=== PATIENT | female | born 2000 | race African-American/Black ===

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

== ENCOUNTER 2018-01-03 12:23 | Emergency (ER) | payer OTHER ==
[~2018-01-03] VITALS: Ht 162.6 cm; Wt 57.5 kg
[~2018-01-03 12:23] MED LIST changes: -DOCU-94 PO; -FERR28TA2 PO; -FOLI1TAB8 PO; -KETO10TA PO; -METH2.5T PO; -PROC1TAB5 PO
[2018-01-03 12:33] VITALS: TEMP 37.5; Ht 162.6 cm; Wt 57.5 kg
[2018-01-03] MEDS ORDERED: METH2.5T PO (13:25)
[2018-01-03] MEDS ORDERED: FERR28TA2 PO (13:25)
[2018-01-03] MEDS ORDERED: DOCU-94 PO (13:25)
[2018-01-03] MEDS ORDERED: FOLI1TAB8 PO (13:25)
[2018-01-03] MEDS ORDERED: PRED-301 PO (13:26)
[2018-01-03] MEDS ORDERED: KETOROLAC TROMETHAMINE 30 MG/ML VIAL IV STA (13:45)
[2018-01-03] MEDS ORDERED: SODIUM CHLORIDE 0.9% 1000ML 1,000 ML IV ONE (13:45)
[2018-01-03] MEDS ORDERED: ACETAMINOPHEN 500 MG TAB PO STA (13:45)
--- NOTE | 2018-01-03 13:52 | EMERGENCY ROOM VISIT NOTE ---
History First contact with patient: 13:23 Chief Complaint: FEVER Stated Complaint: MIGRAINE, FEVER, SOB, MUSCLE ACHE History of Present Illness The patient is a 17 year old female who presents to the Emergency Room with complaints of headache, fever and body aches for the last 2 days. Patient has a history of mixed connective tissue disease. She was started on methotrexate approximately 1 month ago. The patient has had body aches since starting the medications. She also complains of a sore throat and sinus pressure. She took her temperature at home. Was 101F. She has not taken any [id number] medication for her symptoms. The patient contacted her vessel captain in addition to her primary care physician who directed her to the ER for further evaluation. She is also complaining of photophobia. She feels nauseated, but has not vomited. Review of Systems 10 system review performed and negative unless noted in HPI or below Past Medical/Surgical History Medical Problems: (1) Conjunctivitis of both eyes (2) Mixed connective tissue disease (3) Pharyngitis Social History Smoking Status: Never Smoker Alcohol Use: none Drug Use: none Marital Status: single Housing Status: lives with family Occupation Status: student Current/Historical Medications Scheduled Albuterol Hfa (Ventolin Hfa), 3 PUFFS INH Q4 Docusate Sodium (Colace), 1 CAP PO BID Ferrous Sulfate (Iron), 1 TAB PO DAILY Folic Acid (Folvite), 1 MG PO DAILY Methotrexate (Methotrexate), 6 TABS PO WK Prednisone (Prednisone), 5 MG PO DAILY Prochlorperazine Maleate (Compazine), 10 MG PO Q8H Scheduled PRN Ketorolac Tromethamine (Toradol), 10 MG PO TID PRN for Pain Physical Exam Vital Signs Date Time Temp Pulse Resp B/P (MAP) Pulse Ox O2 Delivery O2 Flow Rate FiO2 01/03/18 16:55 66 18 94/50 99 Room Air 01/03/18 15:35 67 18 110/54 99 Room Air 01/03/18 12:33 37.5 99 18 112/72 97 Room Air Physical Exam VITALS: Vitals are noted on the nurse's note and reviewed by myself. Vital signs stable. GENERAL: 17-year-old female, in no acute distress, nondiaphoretic, well- developed well-nourished. SKIN: The skin was without rashes, erythema, edema, or bruising. HEAD: Normocephalic atraumatic. EARS: External auditory canals clear, tympanic membranes pearly araya without erythema or effusion bilaterally. EYES: Pupils equal round and reactive to light and accommodation. Conjunctivae without injection, sclerae without icterus. Extraocular movements intact. NOSE: Patent, turbinates without inflammation or discharge. Tenderness over the right maxillary sinus MOUTH: Mucous membranes slightly dry tonsils are not enlarged. Pharynx without erythema or exudate. Uvula midline. Airway patent. Tongue does not deviate. NECK: Supple without nuchal rigidity. No lymphadenopathy. Cervical spine is nontender. No JVD. HEART: Regular rate and rhythm without murmurs gallops or rubs. LUNGS: Clear to auscultation bilaterally without wheezes, rales or rhonchi. No accessory muscle use. ABDOMEN: Positive bowel sounds x 4.Soft, nontender, without organomegaly. No guarding or rebound tenderness. MUSCULOSKELETAL: No muscle atrophy, erythema, or edema noted. Full range of motion in all extremities. No tenderness to palpation. Normal gait. Strength 5/5 throughout. NEURO: Patient was alert and oriented to person place and time. Cerebellar function intact. Cranial nerves grossly intact normal sensation to touch. No focal neurological deficits. Medical Decision & Procedures ER Provider Diagnostic Interpretation: CXR Patient Name: LELO IQBAL Unit Number: [id number] Dictated: 01/03/181611 Transcribed: 01/03/181611 PBS Printed Date/Time: [~ rep prt dt]/[~ rep prt tm] [~ rep ct labl] - [~ rep ct ivnm] [facility] [place] [address] Dictated: 01/03/181611 Transcribed: 01/03/181611 PBS Printed Date/Time: [~ rep prt dt]/[~ rep prt tm] [~ rep ct labl] - [~ rep ct ivnm] IMPRESSION: 1. No acute cardiopulmonary disease. Electronically signed by: Dane Ugarte M.D. 01/03/2018 4:13 PM Dictated Date/Time: 01/03/2018 4:12 PM The status of this report is Signed. Draft = Not yet reviewed or approved by Radiologist. Signed = Reviewed and approved by Radiologist. <AttendingPhy></AttendingPhy> <FamilyPhy>Olvin Milan M.D.</FamilyPhy> < PrimaryPhy>Taryn Cerda M.D.</PrimaryPhy> <UnitNumber>[id number]</UnitNumber > <VisitNumber>[id number]</VisitNumber> <PatientName>LELO IQBAL</ PatientName> <DateOfBirth>2000</DateOfBirth> <Location>[facility]</Location> < ServiceDate>01/03/18</ServiceDate> <MNE>ESINDI</MNE> <OrderingPhy>Adelaide Martin PA-C</OrderingPhy> <OrderingPhyMNE>f rep ord dr roman</OrderingPhyMNE> < DictatingPhyMNE>f rep dict dr roman</DictatingPhyMNE> <CCListMNE>f rep ct mne</ CCListMNE> <AdmittingPhyMNE>f pt admit dr roman</AdmittingPhyMNE> <AttendingPhyMNE >f pt attend dr roman</AttendingPhyMNE> <ConsultingPhyMNE>f pt consult dr roman</ConsultingPhyMNE> <FamilyPhyMNE>f pt fam dr roman</FamilyPhyMNE> <OtherPhyMNE>f pt other dr roman</OtherPhyMNE> < PrimaryPhyMNE>f pt prim care dr roman</PrimaryPhyMNE> <ReferringPhyMNE>f pt referring dr roman</ReferringPhyMNE> CT head w/o contrast IMPRESSION: 1. No acute intracranial abnormality. Electronically signed by: Dane Ugarte M.D. 01/03/2018 3:29 PM Dictated Date/Time: 01/03/2018 3:27 PM The status of this report is Signed. Draft = Not yet reviewed or approved by Radiologist. Signed = Reviewed and approved by Radiologist. <AttendingPhy></AttendingPhy> <FamilyPhy>Olvin Milan M.D.</FamilyPhy> < PrimaryPhy>Taryn Cerda M.D.</PrimaryPhy> <UnitNumber>[id number]</UnitNumber > <VisitNumber>[id number]</VisitNumber> <PatientName>LELO IQBAL</ PatientName> <DateOfBirth>2000</DateOfBirth> <Location>[facility]</Location> < ServiceDate>01/03/18</ServiceDate> <MNE>ESINDI</MNE> <OrderingPhy>Adelaide Martin PA-C</OrderingPhy> <OrderingPhyMNE>f rep ord dr roman</OrderingPhyMNE> < DictatingPhyMNE>f rep dict dr roman</DictatingPhyMNE> <CCListMNE>f rep ct mne</ CCListMNE> <AdmittingPhyMNE>f pt admit dr roman</AdmittingPhyMNE> <AttendingPhyMNE >f pt attend dr roman</AttendingPhyMNE> <ConsultingPhyMNE>f pt consult dr roman</ConsultingPhyMNE> <FamilyPhyMNE>f pt fam dr roman</FamilyPhyMNE> <OtherPhyMNE>f pt other dr roman</OtherPhyMNE> < PrimaryPhyMNE>f pt prim care dr roman</PrimaryPhyMNE> <ReferringPhyMNE>f pt referring dr roman</ReferringPhyMNE> Laboratory Results 01/03/18 14:30 Red Blood Count 3.94, Mean Corpuscular Volume 85.5, Mean Corpuscular Hemoglobin 28.9, Mean Corpuscular Hemoglobin Concent 33.8, Mean Platelet Volume 9.0, Neutrophils (%) (Auto) 70.6, Lymphocytes (%) (Auto) 23.7, Monocytes (%) (Auto) 4.7, Eosinophils (%) (Auto) 0.4, Basophils (%) (Auto) 0.2, Neutrophils # (Auto) 3.57, Lymphocytes # (Auto) 1.20, Monocytes # (Auto) 0.24, Eosinophils # (Auto) 0.02, Basophils # (Auto) 0.01 01/03/18 14:30 Test 01/03/18 14:12 01/03/18 14:30 01/03/18 15:31 Influenza Type A Antigen Neg for Influ A (NEG) Influenza Type B Antigen Neg for Influ B (NEG) White Blood Count 5.06 K/uL (4.8-10.8) Red Blood Count 3.94 M/uL (4.2-5.4) Hemoglobin 11.4 g/dL (12.0-16.0) Hematocrit 33.7 % (37-47) Mean Corpuscular Volume 85.5 fL (80-100) Mean Corpuscular Hemoglobin 28.9 pg (25-34) Mean Corpuscular Hemoglobin Concent 33.8 g/dl (32-36) Platelet Count 320 K/uL (130-400) Mean Platelet Volume 9.0 fL (7.4-10.4) Neutrophils (%) (Auto) 70.6 % Lymphocytes (%) (Auto) 23.7 % Monocytes (%) (Auto) 4.7 % Eosinophils (%) (Auto) 0.4 % Basophils (%) (Auto) 0.2 % Neutrophils # (Auto) 3.57 K/uL (1.4-6.5) Lymphocytes # (Auto) 1.20 K/uL (1.2-3.4) Monocytes # (Auto) 0.24 K/uL (0.11-0.59) Eosinophils # (Auto) 0.02 K/uL (0-0.5) Basophils # (Auto) 0.01 K/uL (0-0.2) RDW Standard Deviation 38.6 fL (36.4-46.3) RDW Coefficient of Variation 12.5 % (11.5-14.5) Immature Granulocyte % (Auto) 0.4 % Immature Granulocyte # (Auto) 0.02 K/uL (0.00-0.02) Erythrocyte Sedimentation Rate 49 mm/hr (0-21) Anion Gap 8.0 mmol/L (3-11) Est Creatinine Clear Calc Drug Dose 113.3 ml/min Estimated GFR () 146.3 Estimated GFR (Non- 126.2 BUN/Creatinine Ratio 6.9 (10-20) Calcium Level 8.5 mg/dl (8.5-10.1) Total Bilirubin 0.4 mg/dl (0.2-1) Aspartate Amino Transf (AST/SGOT) 15 U/L (15-37) Alanine Aminotransferase (ALT/SGPT) 15 U/L (12-78) Alkaline Phosphatase 55 U/L (45-117) Total Creatine Kinase 52 U/L (26-192) Troponin I < 0.015 ng/ml (0-0.045) Total Protein 8.7 gm/dl (6.4-8.2) Albumin 3.6 gm/dl (3.4-5.0) Globulin 5.1 gm/dl (2.5-4.0) Albumin/Globulin Ratio 0.7 (0.9-2) Thyroid Stimulating Hormone (TSH) 0.510 uIu/ml (0.300-4.500) Free Thyroxine 0.99 ng/dl (0.80-1.60) Hepatitis B Surface Antigen NEG (NEG) Hepatitis C Antibody NEG (NEG) Urine Color YELLOW Urine Appearance CLEAR (CLEAR) Urine pH 7.5 (4.5-7.5) Urine Specific Art 1.010 (1.000-1.030) Urine Protein NEG (NEG) Urine Glucose (UA) NEG (NEG) Urine Ketones NEG (NEG) Urine Occult Blood NEG (NEG) Urine Nitrite NEG (NEG) Urine Bilirubin NEG (NEG) Urine Urobilinogen NEG (NEG) Urine Leukocyte Esterase TRACE (NEG) Urine WBC (Auto) 1-5 /hpf (0-5) Urine RBC (Auto) 0-4 /hpf (0-4) Urine Hyaline Casts (Auto) 0 /lpf (0-5) Urine Epithelial Cells (Auto) 20-30 /lpf (0-5) Urine Bacteria (Auto) NEG (NEG) Urine Test NEG (NEG) Medications Administered Medications (Trade) Dose Ordered Sig/Rahat Route Start Time Stop Time Status Last Admin Dose Admin Sodium Chloride 1,000 ml @ 999 mls/hr Q1H1M ONCE IV 01/03/18 13:45 01/03/18 14:45 DC 01/03/18 14:37 999 MLS/HR Acetaminophen (Tylenol Tab) 1,000 mg NOW STAT PO 01/03/18 13:45 01/03/18 13:50 DC 01/03/18 14:36 1,000 MG Ketorolac Tromethamine (Toradol Inj) 30 mg NOW STAT IV 01/03/18 13:45 01/03/18 13:50 DC 01/03/18 14:37 30 MG Diphenhydramine HCl (Benadryl Inj) 25 mg NOW STAT IV 01/03/18 16:06 01/03/18 16:07 DC 01/03/18 16:22 25 MG Prochlorperazine Edisylate (Compazine Inj) 10 mg NOW STAT IV 01/03/18 16:06 01/03/18 16:07 DC 01/03/18 16:22 10 MG ECG Per My Interpretation Indication: chest pain Rate (beats per minute): 78 Rhythm: normal sinus Comparison ECG Date: no prior available ED Course Patient was seen and examined Vital signs including blood pressure were reviewed medications list was verified with patient Labs were obtained, and a saline lock was established The patient was medicated with Tylenol and Toradol. She was hydrated with 1 L of normal saline. Upon reevaluation, she was still complaining of a headache. She was given Benadryl 25 mg and Compazine 10 mg IV. Imaging was performed and reviewed Upon reassessment, the patient was feeling much better. I thoroughly reviewed the workup with her and her mother. They voiced understanding. The case was discussed with my supervising physician in addition to Dr. Kaufman from rheumatology. They are in agreement with my plan. I reviewed discharge instructions the patient. They voiced understanding and had no further questions. Medical Decision Differential includes: Migraine, acute intracranial bleed, trauma, meningitis, encephalitis, increased intracranial pressure, mass or mass effect, facial or dental infection, sinusitis, strep pharyngitis, influenza, other viral syndrome , acute on chronic pain. This patient is a 17-year-old female presents to the emergency department with a main complaint of headache and fever. She has had associated photophobia and nausea. On exam, she did not have any nuchal rigidity. Her pharynx was not inflamed. She is neurologically intact. A CT of the head was performed. No acute findings were noted. There is no leukocytosis. Her sed rate is slightly elevated at 49. I discussed the case with Dr. Kaufman, the patient's vessel captain. Her sed rate has been significantly elevated in the 80s. He did not have a high suspicion of a dissection or aneurysm. The patient's symptoms sound migrainous in nature. She was treated with Toradol, Tylenol, Benadryl and Compazine with excellent symptomatic relief in the emergency department. I believe she is stable to be discharged home with close follow- up. Dr. Kaufman said that he will be able to get her seen in the office on Saturday. She was instructed to return to the emergency department with any worsening symptoms over the weekend. This chart was completed in part utilizing [employer] Speech Voice Recognition software. Attempts were made to minimize the grammatical errors, random word insertions, pronoun errors and incomplete sentences. Any formal questions or concerns about the content, text or information contained within the body of this dictation should be directly addressed to the provider for clarification. Medication Reconcilliation Current Medication List: was personally reviewed by me Blood Pressure Screening Patient's blood pressure: Normal blood pressure Consults Consulting Physician: Dr. Kaufman Impression Primary Impression: Headache Departure Information Dispostion Home / Self-Care Prescriptions Prochlorperazine Maleate (COMPAZINE) 10 Mg Tab 10 MG PO Q8H, #10 TAB Prov: Adelaide Martin PA-C 01/03/18 Ketorolac Tromethamine (TORADOL) 10 Mg Tab 10 MG PO TID Y for Pain, #10 TAB Prov: Adelaide Martin PA-C 01/03/18 Referrals Taryn Cerda M.D. (PCP) Olvin Milan M.D. Patient Instructions My [facility] Additional Instructions You have been evaluated in the emergency department for a headache and fever. A CAT scan was performed. No abnormalities were noted. Your white blood cell count was normal. The sedimentation rate was slightly elevated at 49. It is possible that your symptoms are due to an atypical migraine Please get plenty of rest and stay well hydrated. Increase fluids over the next several days. If the headache returns, please take Compazine and Toradol every 8 hours as needed. Please also take Benadryl 25 mg every 8 hours as needed in addition to the Compazine and Toradol Please follow-up with Dr. Kaufman as soon as possible. Call Saturday for a follow-up appointment. Please do not hesitate to return to the emergency department with any new, worsening or concerning symptoms; especially, fever of 102F or greater, severe , sudden worsening of headache, neck pain, persistent vomiting or changes in vision It was a pleasure participating in your care this afternoon Work Instructions Return To Work: 2 days School Instructions Return To School: 2 days
[2018-01-03 14:45] LABS: INFLUENZA B ANTIGEN Neg for Influ B (NEG)
[2018-01-03 15:04] LABS: BASO % 0.2 %; BASO ABS # 0.01 K/uL (0-0.2); EOS % 0.4 %; EOS ABS # 0.02 K/uL (0-0.5); HEMATOCRIT 33.7 % (37-47); HEMOGLOBIN 11.4 g/dL (12.0-16.0); IG# 0.02 K/uL (0.00-0.02); LYMPH % 23.7 %; MEAN CELL VOLUME 85.5 fL (80-100); MEAN CORPUSCULAR HEMOGLOBIN 28.9 pg (25-34); MEAN CORPUSCULAR HGB CONC 33.8 g/dl (32-36); MONO % 4.7 %; MONO ABS # 0.24 K/uL (0.11-0.59); NEUT % 70.6 %; NEUT ABS # 3.57 K/uL (1.4-6.5); PLATELET COUNT 320 K/uL (130-400); RED CELL DISTRIBUTION WIDTH CV 12.5 % (11.5-14.5); RED CELL DISTRIBUTION WIDTH SD 38.6 fL (36.4-46.3); WHITE BLOOD COUNT 5.06 K/uL (4.8-10.8)
[2018-01-03 15:09] LABS: ALBUMIN 3.6 gm/dl (3.4-5.0); ALT/SGPT 15 U/L (12-78); BLOOD UREA NITROGEN 5 mg/dl (7-18); CALCIUM 8.5 mg/dl (8.5-10.1); CARBON DIOXIDE 24 mmol/L (21-32); CREATININE 0.69 mg/dl (0.60-1.20); GLUCOSE 74 mg/dl (70-99); POTASSIUM 3.8 mmol/L (3.5-5.1); SODIUM 135 mmol/L (136-145)
[2018-01-03 15:20] LABS: ALKALINE PHOSPHATASE 55 U/L (45-117); AST/SGOT 15 U/L (15-37); TOTAL PROTEIN 8.7 gm/dl (6.4-8.2)
--- NOTE | 2018-01-03 15:30 | DIAGNOSTIC IMAGING REPORT ---
HEAD WITHOUT CONTRAST (CT) CLINICAL HISTORY: 17 years-old Female presenting with DEJESUS fever. TECHNIQUE: Multidetector CT imaging of the head was performed without the use of intravenous contrast. IV contrast: None. A dose lowering technique was used consistent with the principles of ALARA (as low as reasonably achievable). COMPARISON: MR brain from 05/04/2015. CT DOSE (mGy.cm): The estimated cumulative dose is 614.27 mGy.cm. FINDINGS: Hose Turner topogram: Unremarkable. Ventricles and sulci normal in size. Brain parenchyma normal in appearance with preserved araya-white differentiation. No mass effect or midline shift. No hemorrhage or acute territorial infarct. No extra-axial fluid collection. Paranasal sinuses and mastoid air cells clear. Calvarium intact. IMPRESSION: 1. No acute intracranial abnormality. Electronically signed by: Dane Ugarte M.D. 01/03/2018 3:29 PM Dictated Date/Time: 01/03/2018 3:27 PM
[2018-01-03] MEDS ORDERED: PROCHLORPERAZINE 5 MG/ML 2 ML VIAL IV STA (16:06)
[2018-01-03] MEDS ORDERED: DiphenhydrAMINE HCL 50 MG/ML VIAL IV STA (16:06)
[2018-01-03 16:10] LABS: HEP C IGG 13 YRS+OLDER_RFLX NEG (NEG)
--- NOTE | 2018-01-03 16:14 | DIAGNOSTIC IMAGING REPORT ---
CHEST 2 VIEWS ROUTINE CLINICAL HISTORY: 17 years-old Female presenting with cough fever. TECHNIQUE: PA and lateral views of the chest were obtained. COMPARISON: 08/13/2017. FINDINGS: Cardiomediastinal silhouette normal. Lungs and pleural spaces clear. Osseous structures normal. Upper abdomen normal. IMPRESSION: 1. No acute cardiopulmonary disease. Electronically signed by: Dane Ugarte M.D. 01/03/2018 4:13 PM Dictated Date/Time: 01/03/2018 4:12 PM
[2018-01-03] MEDS ORDERED: PROC1TAB5 PO (16:40)
[2018-01-03] MEDS ORDERED: KETO10TA PO (16:40)
[2018-01-03 16:55] VITALS: BP 94/50; PULSE 66; O2SAT 99
== END 2018-01-03 17:03 | disposition home or self-care (01) ==
LOC: C.EDB 12:25 → C.EDC 17:03
DX: R51 Headache (principal); R70.0 Elevated erythrocyte sedimentation rate; R50.9 Fever, unspecified; R07.0 Pain in throat; J34.89 Other specified disorders of nose and nasal sinuses; R11.0 Nausea; M35.1 Other overlap syndromes; Z79.52 Long term (current) use of systemic steroids